=== PATIENT | female | born 1950 | race Caucasian/White ===

== ENCOUNTER → 2016-04-04 | Outpatient (CLI) | payer MEDICARE | END | disposition home or self-care (01) | LOC: PCVCCLINIC 10:20 | PROVIDERS: ATTEND Internal Medicine Cardiovascular Disease | DX: E78.00 Pure hypercholesterolemia, unspecified (principal) | CPT/HCPCS: 36415 ==

== ENCOUNTER → 2016-04-09 | Outpatient (CLI) | payer MEDICARE | END | disposition home or self-care (01) | LOC: PCVCCLINIC 10:50 | PROVIDERS: ATTEND Internal Medicine Cardiovascular Disease | DX: I25.10 Atherosclerotic heart disease of native coronary artery without angina pectoris (principal); E78.5 Hyperlipidemia, unspecified; I10 Essential (primary) hypertension; I47.1 Supraventricular tachycardia | CPT/HCPCS: 93005; G0463 ==

== ENCOUNTER → 2016-04-23 | Outpatient (CLI) | payer MEDICARE | END | disposition home or self-care (01) | LOC: PCVCCLINIC 08:52 | PROVIDERS: ATTEND Internal Medicine Cardiovascular Disease | DX: E78.00 Pure hypercholesterolemia, unspecified (principal); E78.5 Hyperlipidemia, unspecified | CPT/HCPCS: 36415 ==

== ENCOUNTER → 2016-08-21 | Outpatient (CLI) | payer MEDICARE | END | disposition home or self-care (01) | LOC: PCVCCLINIC 08:39 | PROVIDERS: ATTEND Internal Medicine Cardiovascular Disease | DX: E78.5 Hyperlipidemia, unspecified (principal) | CPT/HCPCS: 36415 ==

== ENCOUNTER → 2016-10-09 | Outpatient (CLI) | payer MEDICARE ==
--- NOTE | 2016-10-09 11:00 | PCVCIMAG ---
APPROVED REPORT Study performed: 10/09/2016 10:10:33 EXAM: Comprehensive 2D, Doppler, and color-flow Echocardiogram Patient Location: Echo lab Status: routine BSA: 1.79 HR: 52 bpmBP: 136/94 mmHg Rhythm: Bradycardia Other Information Study Quality: Adequate Indications Bradycardia CAD Hypertension/HDD SD, S/P STENT X 2 RCA,SVT,HCL 2D Dimensions IVSd: 8.95 (7-11mm)LVOT Diam: 19.80 (18-24mm) LVDd: 42.72 mm PWd: 6.14 (7-11mm)Ascending Ao: 28.22 (22-36mm) LVDs: 25.21 (25-40mm) Left Atrium: 28.60 (27-40mm) Aortic Root: 22.08 mm LV Single Plane 4CH: 54.30 % LV Single Plane 2CH: 57.56 %Rick's LVEF: 55.93 % Biplane EF: 55.6 % Volumes Left Atrial Volume (Systole) Single Plane 4CH: 27.22 mLSingle Plane 2CH: 29.09 mL Biplane LA Volume: 30.00 mLLA ESV Index: 17.00 mL/m2 Aortic Valve AoV Peak Brett.: 1.46 m/s AO Peak Gr.: 9.04 mmHgLVOT Max P.47 mmHg LVOT Max V: 0.93 m/s KURT Vmax: 1.97 cm2 Mitral Valve E/A Ratio: 0.8 MV Decel. Time: 197.67 ms MV E Max Brett.: 0.62 m/s MV A Brett.: 0.73 m/s IVRT: 134.95 ms TDI E/Lateral E': 10.33E/Medial E': 15.50 Medial E' Brett.: 0.04 m/s Lateral E' Brett.: 0.06 m/s Pulmonary Valve PV Peak Brett.: 0.90 m/sPV Peak Gr.: 3.21 mmHg Pulmonary Vein P Vein S: 0.69 m/sP Vein A: 0.41 m/s P Vein D: 0.33 m/sP Vein A Dur.: 96.9 msec P Vein S/D Ratio: 2.09 Tricuspid Valve TR Peak Brett.: 1.07 m/s TR Peak Gr.: 4.62 mmHg TV Vmax: 0.51 m/sPA Pressure: 12.00 mmHg Left Ventricle The left ventricle is normal size. There is normal LV segmental wall motion. There is normal left ventricular wall thickness. Left ventricular systolic function is normal. The left ventricular ejection fraction is within the normal range. LVEF is 55-60%. Grade I - abnormal relaxation pattern. Right Ventricle The right ventricle is normal size. The right ventricular systolic function is normal. Atria The left atrium size is normal. The right atrium size is normal. Aortic Valve The aortic valve is normal in structure. No aortic regurgitation is present. There is no aortic valvular stenosis. Mitral Valve The mitral valve is normal in structure. There is no mitral valve regurgitation noted. No evidence of mitral valve stenosis. Tricuspid Valve The tricuspid valve is normal in structure. There is trivial tricuspid valve regurgitation noted. Pulmonic Valve The pulmonary valve is normal in structure. There is no pulmonic valvular regurgitation. Great Vessels The aortic root is normal in size. The ascending aorta is normal in size. IVC is normal in size and collapses with >50% inspiration Pericardium There is no pericardial effusion. There is no pleural effusion. <Conclusion> The left ventricle is normal size. Left ventricular systolic function is normal. Grade I - abnormal relaxation pattern. The right ventricle is normal size. The left atrium size is normal. The aortic valve is normal in structure. The mitral valve is normal in structure. There is trivial tricuspid valve regurgitation noted. There is no pericardial effusion.
== END | disposition home or self-care (01) ==
LOC: PCVCIMAG 10:03
PROVIDERS: ATTEND Internal Medicine Cardiovascular Disease
DX: I07.1 Rheumatic tricuspid insufficiency (principal); I25.10 Atherosclerotic heart disease of native coronary artery without angina pectoris; I10 Essential (primary) hypertension; E78.5 Hyperlipidemia, unspecified; I25.2 Old myocardial infarction; Z79.82 Long term (current) use of aspirin; Z95.5 Presence of coronary angioplasty implant and graft; Z88.8 Allergy status to other drugs, medicaments and biological substances
CPT/HCPCS: 36415; 93005; 93306; G0463

== ENCOUNTER → 2016-10-23 | Outpatient (CLI) | payer MEDICARE | END | disposition home or self-care (01) | LOC: PCVCCLINIC 09:36 | PROVIDERS: ATTEND Internal Medicine Cardiovascular Disease | DX: E78.5 Hyperlipidemia, unspecified (principal) | CPT/HCPCS: 80061 ==

== ENCOUNTER → 2017-04-08 | Outpatient (CLI) | payer MEDICARE | END | disposition home or self-care (01) | LOC: PCVCCLINIC 09:14 | DX: E78.00 Pure hypercholesterolemia, unspecified (principal); I25.10 Atherosclerotic heart disease of native coronary artery without angina pectoris | CPT/HCPCS: 36415 ==

== ENCOUNTER → 2017-04-16 | Outpatient (CLI) | payer MEDICARE | END | disposition home or self-care (01) | LOC: PCVCCLINIC 11:31 | DX: I25.10 Atherosclerotic heart disease of native coronary artery without angina pectoris (principal); I10 Essential (primary) hypertension; E78.00 Pure hypercholesterolemia, unspecified; R00.1 Bradycardia, unspecified; Z79.82 Long term (current) use of aspirin; Z79.899 Other long term (current) drug therapy | CPT/HCPCS: 36415; 93005; G0463 ==

== ENCOUNTER → 2017-10-10 | Outpatient (CLI) | payer MEDICARE ==
--- NOTE | 2017-10-10 12:01 | PCVCIMAG ---
APPROVED REPORT Study performed: 10/10/2017 10:14:07 Exam: Stress Echocardiogram Indication: CAD s/p PCI Stress Nurse: Dominga Nieves RN Room #: 2 Status: routine Ht: 5 ft 3 in HR: 79 bpm BP: 138/100 mmHg Rhythm: NSR Medical History Medical History: CAD s/p stent, HTN, Hyperlipidemia Cardiac Risk Factors: HTN, Hyperlipidemia Previous Cardiac Procedures: PCI Pretest Chest Pain Characteristics: No chest pain Exercise History: Physically active Procedure The patient underwent an Exercise Stress Test using the Dmitry Protocol. Blood pressure, heart rate, and EKG were monitored. An Echocardiogram was performed by radioisotope technician in four stages in quad fashion. At peak stress, four selected images were obtained and placed side by side with resting images for comparison. Stress Test Details Stress Test: Exercise stress testing was performed using a Dmitry protocol. HR Resting HR: 74 bpmMax Heart Rate (APMHR): 153 bpm Max HR Achieved: 173 bpmTarget HR (85% APMHR): 130 bpm % of APMHR: 113 Recovery HR: 86 bpm HR response to stress: Normal HR response to stress BP Resting BP: 138/100 mmHg Max BP: 174/100 mmHg Recovery BP: 158/100 mmHg ECG Resting ECG: Sinus Rhythm Stress ECG: Sinus Rhythm ST Change: Non-ischemic Arrhythmia: occasional PACs, rare PVCs Recovery ECG: Sinus Rhythm Recovery ST Change: Non-ischemic Recovery Arrhythmia: occasional PACs Clinical Reason for Termination: Maximal effort Stress Symptoms: none Exercise duration: 8 min 11 sec Highest Stage Achieved: Stage 3: 3.4 mph at 14% grade. Exercise capacity: 10.1 METs Overall Exercise Capacity for Age: Normal Scale: Active Angina Score: None No complications. Stress ECG Conclusion The patient exercised according to the DMITRY protocol for 8:11 mins; achieving a work level of 10.1 METS. The resting heart rate of 74 bpm caleb to a maximum heart rate of 173 bpm. This value represent 113 % of the maximal, age-predicted heart rate. The resting blood pressure of 138/100 mmHg, caleb to a maximum blood pressure of 174/100 mmHg. The exercise test was stopped due to fatigue. Pre-Stress Echo The resting Echocardiogram showed normal left ventricular contractility with an estimated Ejection Fraction of about 55-60%. Normal wall motion in all segments on baseline images. Post-Stress Echo The stress Echocardiogram showed normal left ventricular contractility with an estimated Ejection Fraction of about 65-70%. Normal augmentation of wall motion in all segments on post stress images. Clinical No clinical or ECG evidence for ischemia. Conclusion Clinical Response: Non-ischemic Exercise Capacity: Average Stress ECG Response: Non-ischemic Stress Echo Images: Non-ischemic No clinical, EKG or echocardiographic evidence for ischemia. No echocardiographic evidence for exercise induced ischemia. Normal stress echocardiogram with maximal exercise stress. <Conclusion> No clinical, EKG or echocardiographic evidence for ischemia. No echocardiographic evidence for exercise induced ischemia. Normal stress echocardiogram with maximal exercise stress.
== END | disposition home or self-care (01) ==
LOC: PCVCIMAG 15:10
PROVIDERS: ATTEND Internal Medicine Cardiovascular Disease
DX: I25.10 Atherosclerotic heart disease of native coronary artery without angina pectoris (principal); I10 Essential (primary) hypertension; E78.00 Pure hypercholesterolemia, unspecified; R00.1 Bradycardia, unspecified; E78.5 Hyperlipidemia, unspecified; I25.2 Old myocardial infarction; Z95.5 Presence of coronary angioplasty implant and graft; Z88.8 Allergy status to other drugs, medicaments and biological substances; Z79.82 Long term (current) use of aspirin; Z79.899 Other long term (current) drug therapy
CPT/HCPCS: 36415; 93325; 93351; G0463

== ENCOUNTER → 2018-04-14 | Outpatient (CLI) | payer MEDICARE | END | disposition home or self-care (01) | LOC: PCVCCLINIC 09:57 | PROVIDERS: ATTEND Internal Medicine Cardiovascular Disease | DX: I25.10 Atherosclerotic heart disease of native coronary artery without angina pectoris (principal); R00.1 Bradycardia, unspecified; E78.5 Hyperlipidemia, unspecified; I10 Essential (primary) hypertension; E78.00 Pure hypercholesterolemia, unspecified; Z79.82 Long term (current) use of aspirin | CPT/HCPCS: 36415; 80061; 93005; G0463 ==

== ENCOUNTER → 2018-10-13 | Outpatient (CLI) | payer MEDICARE ==
--- NOTE | 2018-10-13 10:39 | PCVCIMAG ---
APPROVED REPORT Study performed: 10/13/2018 09:37:04 EXAM: Comprehensive 2D, Doppler, and color-flow Echocardiogram Patient Location: Echo lab Room #: 2Status: routine BSA: 1.76 HR: 45 bpmBP: 106/74 mmHg Rhythm: Bradycardia Other Information Study Quality: Good Risk Factors: Cardiac Risk Factors: HTN, Hyperlipidemia Indications Bradycardia CAD S/P CORONARY STENTS 2D Dimensions IVSd: 10.67 (7-11mm)LVOT Diam: 20.25 (18-24mm) LVDd: 41.84 mm PWd: 8.77 (7-11mm)Ascending Ao: 32.78 (22-36mm) LVDs: 27.32 (25-40mm) Left Atrium: 31.83 (27-40mm) Aortic Root: 23.59 mm LV Single Plane 4CH: 53.86 % LV Single Plane 2CH: 64.96 % Biplane EF: 60.4 % Volumes Left Atrial Volume (Systole) Single Plane 4CH: 71.52 mLSingle Plane 2CH: 46.62 mL Biplane LA Volume: 58.00 mLLA ESV Index: 33.00 mL/m2 Aortic Valve AoV Peak Brett.: 1.28 m/s AO Peak Gr.: 6.51 mmHgLVOT Max P.01 mmHg LVOT Max V: 0.87 m/s KURT Vmax: 2.19 cm2 Mitral Valve E/A Ratio: 0.7 MV Decel. Time: 215.36 ms MV E Max Brett.: 0.60 m/s MV A Brett.: 0.86 m/s IVRT: 134.95 ms TDI E/Lateral E': 10.00E/Medial E': 20.00 Medial E' Brett.: 0.03 m/s Lateral E' Brett.: 0.06 m/s Pulmonary Valve PV Peak Brett.: 0.84 m/sPV Peak Gr.: 2.79 mmHg Pulmonary Vein P Vein S: 0.66 m/sP Vein A: 0.31 m/s P Vein D: 0.43 m/sP Vein A Dur.: 90.0 msec P Vein S/D Ratio: 1.53 Tricuspid Valve TR Peak Brett.: 2.04 m/s TR Peak Gr.: 16.70 mmHg TV Vmax: 0.60 m/sPA Pressure: 24.00 mmHg Left Ventricle The left ventricle is normal size. There is normal LV segmental wall motion. Mild septal hypertrophy Left ventricular systolic function is normal. The left ventricular ejection fraction is within the normal range. LVEF is 60%. Grade I - abnormal relaxation pattern. Right Ventricle The right ventricle is normal size. The right ventricular systolic function is normal. Atria The left atrium size is normal. The right atrium size is normal. Aortic Valve Aortic valve is trileaflet. The aortic valve is normal in structure and function. No aortic regurgitation is present. There is no aortic valvular stenosis. Mitral Valve The mitral valve is normal in structure. There is no mitral valve regurgitation noted. No evidence of mitral valve stenosis. Tricuspid Valve The tricuspid valve is normal in structure. Trace to mild tricuspid regurgitation with a PA pressure of 24 mmHg. No apparent pulmonary hypertension. Pulmonic Valve The pulmonary valve is normal in structure. There is no pulmonic valvular regurgitation. Great Vessels The aortic root is normal in size. The ascending aorta is normal in size. Aortic arch is normal in caliber. IVC is normal in size and collapses >50% with inspiration. Pericardium There is no pericardial effusion. There is no pleural effusion. <Conclusion> The left ventricle is normal size. Mild septal hypertrophy Left ventricular systolic function is normal. Grade I - abnormal relaxation pattern. The right ventricle is normal size. The left atrium size is normal. The aortic valve is normal in structure and function. There is no mitral valve regurgitation noted. Trace to mild tricuspid regurgitation with a PA pressure of 24 mmHg.
== END | disposition home or self-care (01) ==
LOC: PCVCIMAG 09:19
PROVIDERS: ATTEND Internal Medicine Cardiovascular Disease
DX: I07.1 Rheumatic tricuspid insufficiency (principal); I25.10 Atherosclerotic heart disease of native coronary artery without angina pectoris; R00.1 Bradycardia, unspecified; Z95.1 Presence of aortocoronary bypass graft; Z79.82 Long term (current) use of aspirin
CPT/HCPCS: 93005; 93306; G0463